=== PATIENT | female | born 1970 | race Caucasian/White ===

== ENCOUNTER → 2023-10-24 15:36 | Outpatient (REF) | payer BC, SELFPAY | LOC: RAD 15:36 | PROVIDERS: ATTENDING PHYSICIAN Internal Medicine Critical Care Medicine; FAMILY PHYSICIAN Family Medicine | DX: R91.1 Solitary pulmonary nodule (principal) | CPT/HCPCS: 71250 ==

== ENCOUNTER 2023-10-27 20:35 | Inpatient (IN) | payer BC, SELFPAY ==
[2023-10-27 16:57] VITALS: BP 128/64
--- NOTE | 2023-10-27 18:27 | ED.GENMED ---
History of Present Illness
General
Chief Complaint: Breathing Problem
Source: patient
Exam Limitations: none
Time Seen by Provider: 10/27/23 17:59
Nursing documentation reviewed up to this point in time: agreed with
History of Present Illness
History of Present Illness:
53-year-old female past medical history of ulcerative colitis asthma breast cancer bilateral mastectomy fistulas in the obstructions presents to the ER for evaluation. She is followed by Dr. Eber Toledo and recently had an outpatient CAT scan
done October 23 which showed pneumonia. She was recommended to be admitted for IV antibiotics. With past medical history she does not do well on oral antibiotics. She does complain of productive yellow cough. She feels achy but has not a fever.
Today she did feel short of breath at work.
she has been using her nebs .
Past History
Past History
ED Past Medical History: Cancer (breast CA), Other (ulcerative colitis) and Other (migraines)
ED Past Surgical History: Bowel resection (colon removal), Gynecological (double breast mastectomy) and Other (sinus surgery x3)
Review of Systems
Review of Systems
Allergies reviewed?: Yes
All Other Systems: ROS reviewed and negative except as documented in HPI and ROS
Constitutional: Denies fever, fatigue or chills
EENT: Reports no symptoms
Respiratory: Reports cough and trouble breathing (mildly sob )
ABD/GI: Reports no symptoms
: Reports no symptoms
Musculoskeletal: Reports other (Feels achy)
Skin: Reports no symptoms
Neurological: Reports no symptoms
Hematologic/Lymphatic: Reports no symptoms
Psychiatric: Reports no symptoms
Phy Exam
General Physical Exam
General Presentation: no apparent distress
General age: appears stated age
General Skin: warm and dry
General Habitus: normal
General Mental: alert
General Hydration: appears well hydrated
Cardiovascular Exam
Cardiovascular Exam: regular rate/rhythm, no murmur and normal peripheral pulses
Pulmonary Exam
Pulmonary Exam: lungs clear and no respiratory distress
Neurological Exam
Neurological Exam: alert and oriented x3
Musculoskeletal Exam
Musculoskeletal Exam: full ROM
Skin Exam
Skin Exam: normal color and warm/dry
Psychiatric Exam
Psychiatric Exam: normal mood/affect
Scores
Heart Failure Risk
Heart Failure Risk Score: Not Applicable
Course
Orders/Labs/Results
Orders:
Orders
10/27/23 18:31
Cardiac Monitoring- Treatment ONCE
IV Insert/Care/Rem.- Treatment PRN
10/27/23 18:37
CefTRIAXone [Rocephin] 1,000 mg IV NOW STA
10/27/23 18:38
Azithromycin 500 mg/250 ml [Zithromax Infusion] 500 mg in 250 ml IV NOW
10/27/23 18:45
Complete Blood Count/With Diff Urgent
Comprehensive Metabolic Panel Urgent
Lactic Acid Q4H
Comment: CANCEL 2nd LACTIC ACID IF 1st LACTIC ACID IS LESS THAN 2
Blood Culture Q30M
STEPHANIE Source: Blood/Venous
Specimen Description:
Blood Culture Q30M
STEPHANIE Source: Blood/Venous
Specimen Description:
10/27/23 22:45
Lactic Acid Q4H
Comment: CANCEL 2nd LACTIC ACID IF 1st LACTIC ACID IS LESS THAN 2
Abnormal Lab Results
10/27/23
18:45
WBC 13.3 H 10^3/uL
(4.8-10.8)
RBC 4.14 L 10^6/uL
(4.20-5.40)
Hct 36.6 L %
(37.0-47.0)
Abs Immat Gran (auto) 0.1 H 10^3/uL
(0-0.05)
Absolute Neuts (auto) 9.2 H 10^3/uL
(1.4-6.5)
Absolute Monos (auto) 1.1 H 10^3/uL
(0.1-0.6)
Immature Gran % 0.7 H %
(0-0.5)
Sodium 133 L mmol/L
(135-145)
Carbon Dioxide 21 L mmol/L
(22-30)
Glucose 105 H mg/dl
(70-99)
10/27/23 18:45
10/27/23 18:45
Vital Signs
Initial and Last Documented VS:
Initial Vital Signs
Temp Pulse Resp BP Pulse Ox
98.1 F 84 18 128/64 95
10/27/23 16:57 10/27/23 16:57 10/27/23 16:57 10/27/23 16:57 10/27/23 16:57
Last Documented Vital Signs
Temp Pulse Resp BP Pulse Ox
98.1 F 75 19 113/57 93
10/27/23 16:57 10/27/23 18:45 10/27/23 18:45 10/27/23 18:44 10/27/23 18:45
MDM/Problems Addressed
MDM/Problems Addressed:
Patient is a 53-year-old female with asthma and other medical history as documented send the pulmonary. Patient is had a productive yellow cough feels achy for the past several weeks mildly short of breath. She does use medication for asthma which
she has been using. She did outpatient CAT scan October 23 which was ordered as a follow-up CAT scan for questionable abnormality on abdominal CAT scan. 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
to be admitted to the hospital for IV antibiotics. She is sensitive to oral antibiotics as well as IV antibiotics with history of UC/questional Crohn's. She is in no acute distress here white count minimally elevated afebrile IV antibiotics
ordered.
I did review CAT scan which is resulted from October 23.
Chronic conditions affecting care:
Crohn's/ulcerative colitis, asthma
*Radiology
Radiology exam reviewed: radiology read reviewed (Peribronchial thickening airspace opacities recent CAT scan reviewed from October 23 shows findings suggestive of infectious inflammatory process potentially acute on chronic)
*Pulse Oximetry
Patient hypoxic: no
*Critical Care Note
Total Time (30-74mins, 75-104mins- exclusive of procedures): Not Applicable
ED Attending Note
-
Portions of this chart may have been created with voice recognition software.� Occasional wrong word or��sound alike� substitutions may have occurred due to the inherent limitations of voice recognition software.
Discharge Plan
Departure
Patient Disposition: Admit
Date of Disposition: 10/27/23
Time of Disposition: 19:37
Admit to: Med/Surg
Admit to doctor: hospitalist
Presentation/result/management discussed w/ accepting MD/DO: Hospitalist
Patient with high blood pressure during this ER visit?: No
Condition: Fair
Covid-19: Not Applicable
Discharge Problem:
Pneumonia
Prescriptions:
No Action
albuterol sulfate 2.5 mg /3 mL (0.083 %) Solution For Nebulization
2.5 mg INHALATION R BID
divalproex 250 mg tablet,delayed release (DR/EC)
500 mg PO DAILY
divalproex 250 mg tablet,delayed release (DR/EC)
1,250 mg PO HS
ketotifen fumarate [Eye Itch Relief] 0.025 % (0.035 %) Drops
2 drp BOTH EYES DAILYPRN PRN (Reason: itchy eyes)
diphenoxylate-atropine [Lomotil] 2.5-0.025 mg Tablet
2 tab PO DAILY PRN (Reason: diarrhea)
fluoxetine 10 mg Capsule
10 mg PO HS
montelukast 10 mg Tablet
10 mg PO HS
ondansetron 4 mg Tablet,Disintegrating
4 mg PO Q6H PRN (Reason: nausea/vomiting)
levocetirizine [Xyzal] 5 mg Tablet
5 mg PO HS
omeprazole 20 mg Tablet,Delayed Release (Dr/Ec)
20 mg PO HS
cholecalciferol (vitamin D3) 125 mcg (5,000 unit) Tablet
125 mcg PO HS
Botox 200 unit Recon Soln
0 unit IM [id number]
Patient Comments:
10/27/2023, pt. unsure of dose.
ketorolac [Sprix] 15.75 mg/spray [place],Non-Aerosol
1 spray INTRANASAL DAILYPRN PRN (Reason: migraines)
Ubrelvy 100 mg Tablet
100 mg PO DAILYPRN PRN (Reason: migraines)
Nurtec ODT 75 mg Tablet,Disintegrating
75 mg PO DAILYPRN PRN (Reason: migraines)
Benadryl capsule
1 cap PO HSPRN PRN (Reason: allergies)
Fiber (psyllium husk) capsule
1 cap PO DAILYPRN PRN (Reason: constipation)
iron
1 tab PO DAILY
budesonide-formoterol [Symbicort] 160-4.5 mcg/actuation Hfa Aerosol Inhaler
2 puff INHALATION R BID
Referrals:
Venecia Long MD [Family Provider] -
Interventions
Interventions:
ED- Fall Risk Assessment Last Done: 10/27/23 18:50
ED- Cardiac Assessment Last Done: 10/27/23 18:50
ED- Pulmonary Assessment Last Done: 10/27/23 18:50
Discharge Date and Time
Print Language: ARABIC
[2023-10-27 18:44] VITALS: BP 113/57
[2023-10-27 18:50] VITALS: BMI 18.7
[2023-10-27] MEDS: ROCEPHIN 1000 MG IV (18:59)
[2023-10-27] MEDS: ZITHROMAX INFUSION 250 IV (19:03)
[2023-10-27 19:04] LABS: % Basophils 0.7 % (0-2); % Eosinophils 0.7 % (0-6); % Immature Granulocytes 0.7 % (0-0.5); % Lymphocytes 20.9 % (20.5-51.1); % Monocytes 8.3 % (1.7-9.3); % Neutrophils 68.7 % (42.2-75.2); Absolute Basophils 0.1 10^3/uL (0-0.2); Absolute Eosinophils 0.1 10^3/uL (0-0.7); Absolute Immature Granulocytes 0.1 10^3/uL (0-0.05); Absolute Lymphocytes 2.8 10^3/uL (1.2-3.4); Absolute Monocytes 1.1 10^3/uL (0.1-0.6); Absolute Neutrophils 9.2 10^3/uL (1.4-6.5); Hematocrit 36.6 % (37.0-47.0); Hemoglobin 12.1 g/dL (12.0-16.0); Mean Corp Hgb Conc. 33.1 g/dL (33.0-37.0); Mean Corpuscular Hgb 29.2 pg (27.0-31.0); Mean Corpuscular Volume 88.4 fL (81.0-99.0); Nucleated Red Blood Cells % 0 %; Platelet Count 349 10^3/uL (130-400); Red Blood Cell Count 4.14 10^6/uL (4.20-5.40); White Blood Cell Count 13.3 10^3/uL (4.8-10.8)
[2023-10-27 19:18] LABS: Lactic Acid 1.6 mmol/L (0.7-2.0)
[2023-10-27 19:20] LABS: ALT (SGPT) < 10 U/L (0-35); AST (SGOT) 15 U/L (14-36); Albumin 3.9 g/dl (3.5-5.0); Alkaline Phosphatase 67 U/L (38-126); Blood Urea Nitrogen 15 mg/dl (7-17); Calcium 9.4 mg/dl (8.4-10.2); Carbon Dioxide 21 mmol/L (22-30); Chloride 101 mmol/L (98-107); Estimated Creatinine Clearance 65 ml/min; Glucose 105 mg/dl (70-99); Potassium 4.3 mmol/L (3.5-5.1); Sodium 133 mmol/L (135-145); Total Bilirubin 0.5 mg/dl (0.2-1.3); Total Protein 6.9 g/dl (6.3-8.2); eGFR > 60.00
--- NOTE | 2023-10-27 20:00 | HPS.HSE ---
Family Physician
-
Family Physician: Venecia Long
Chief Complaint
-
shortness of breath, cough
History of Present Illness
53-year-old female past medical history of chronic sinusitis, breast cancer status post bilateral mastectomies, ulcerative colitis status post colectomy 1994 complicated by multiple small bowel obstruction status post bowel resections, anal
abscess/fistula status post I&D in August, asthma, anxiety/bipolar, migraines, GERD, presenting for pneumonia.
Patient developed anal abscess in September 12 for which she saw her colorectal doctor at [facility] who gave her antibiotics and performed I&D. At that time she had CT scan of abdomen pelvis which showed evidence of lower lobe pneumonia she had a
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 Toledo Which also confirmed pneumonia and so she was sent in to the hospital for IV antibiotics. She has been having sinus congestion starting a month ago which later evolved into
productive cough and shortness of breath which has been getting worse. Has chills but denies any fevers. She denies any nausea vomiting or diarrhea or abdominal pain.
Patient was instructed by colorectal doctor to complete treatment for pneumonia before consideration of Remicade and further surgery for the anal abscess/fistula. She has some chronic anal discharge which is at baseline.
She was recently treated for vaginal yeast infection with Flucionazole.
She denies smoking or alcohol use.
Medical History
Past Medical History
Past Medical History: Reports Other (chronic sinusitis, breast cancer status post bilateral mastectomies, ulcerative colitis status post colectomy 1994 complicated by multiple small bowel obstruction status post bowel resections, anal
abscess/fistula status post I&D in August, asthma, anxiety/bipolar, migraines, GERD,)
Past Surgical History: Reports None
Social History
Tobacco: Non-smoker
Alcohol: None
Drug: None
Family History
Family History: Not pertinent
Allergies / Home Medications
Allergies reflects when Allergies were last updated in [facility].
Home Medications with original date entered in [facility]
Allergy/Medication List:
Allergies
Allergy/AdvReac Type Severity Reaction Status Date / Time
Sulfa (Sulfonamide Allergy Hives Verified 06/30/16 18:51
Antibiotics)
vancomycin Allergy Itching Verified 10/27/23 17:04
Home Medications
Benadryl 1 cap PO HSPRN PRN allergies 10/27/23
Fiber (psyllium husk) 1 cap PO DAILYPRN PRN constipation 10/27/23
albuterol sulfate 2.5 mg/3 mL (0.083 %) solution for nebulization 2.5 mg inhalation R BID 10/27/23
budesonide-formoterol HFA 160 mcg-4.5 mcg/actuation aerosol inhaler (Symbicort) 2 puff inhalation R BID 10/27/23
cholecalciferol (vitamin D3) 125 mcg (5,000 unit) tablet 125 mcg PO HS 10/27/23
diphenoxylate-atropine 2.5 mg-0.025 mg tablet (Lomotil) 2 tab PO DAILY PRN diarrhea 10/27/23
divalproex 250 mg tablet,delayed release 1,250 mg PO HS 10/27/23
divalproex 250 mg tablet,delayed release 500 mg PO DAILY 10/27/23
fluoxetine 10 mg capsule 10 mg PO HS 10/27/23
iron 1 tab PO DAILY 10/27/23
ketorolac 15.75 mg/spray nasal spray (Sprix) 1 spray intranasal DAILYPRN PRN migraines 10/27/23
ketotifen fumarate 0.025 % (0.035 %) eye drops (Eye Itch Relief) 2 drp BOTH EYES DAILYPRN PRN itchy eyes 10/27/23
levocetirizine 5 mg tablet (Xyzal) 5 mg PO HS 10/27/23
montelukast 10 mg tablet 10 mg PO HS 10/27/23
omeprazole 20 mg tablet,delayed release 20 mg PO HS 10/27/23
onabotulinumtoxinA 200 unit solution for injection (Botox) 0 unit IM [id number] 10/27/23
ondansetron 4 mg disintegrating tablet 4 mg PO Q6H PRN nausea/vomiting 10/27/23
rimegepant 75 mg disintegrating tablet (Nurtec ODT) 75 mg PO DAILYPRN PRN migraines 10/27/23
ubrogepant 100 mg tablet (Ubrelvy) 100 mg PO DAILYPRN PRN migraines 10/27/23
Review of Systems
-
History Source: Patient
A 12 point ROS was completed and negative except as noted: Yes
Constitutional: Reports No Symptoms
EENT: Reports No Symptoms
Respiratory: Reports See HPI
Cardiac: Reports No Symptoms
Abdomen/GI: Reports See HPI
: Reports No Symptoms
Musculoskeletal: Reports No Symptoms
Skin: Reports No Symptoms
Neurological: Reports No Symptoms
Endocrine: Reports No Symptoms
Hematologic/Lymphatic: Reports No Symptoms
Psych: Reports No Symptoms
Physical Exam
Vital Signs
Vital Signs
Temp Pulse Resp BP Pulse Ox
98.1 F 75 19 113/57 93
10/27/23 16:57 10/27/23 18:45 10/27/23 18:45 10/27/23 18:44 10/27/23 18:45
Physical Exam
General: Well Developed, Well Nourished and No Apparent Distress
HEENT: NormoCephalic, Moist mucous membranes and Atraumatic
Respiratory: Clear
Cardiac: S1/S2 and Regular Rhythm; No Murmur or Rub
GI: Soft, Non Tender, Non Distended and Normal Bowel Sounds; No Organomegaly
Rectal: Deferred by Provider
Musculoskeletal: No Clubbing, No Cyanosis and No Edema
Skin: No Rash
Neuro: Nonfocal/grossly intact
Laboratory Results
-
10/27/23 18:45
10/27/23 18:45
Laboratory Results
Lactic Acid 1.6 mmol/L (0.7-2.0) 10/27/23 18:45
Total Bilirubin 0.5 mg/dl (0.2-1.3) 10/27/23 18:45
AST 15 U/L (14-36) 10/27/23 18:45
ALT < 10 U/L (0-35) 10/27/23 18:45
Alkaline Phosphatase 67 U/L (38-126) 10/27/23 18:45
Data Reviewed
-
Lab Data: Labs Reviewed by me
Old Records: Reviewed
Impression/Plan
-
IMPRESSION:
PLAN:
# Community-acquired pneumonia
-CT chest shows peribronchial thickening, airspace opacities, tree-in-bud nodules within the inferior left lower lobe and medial right middle lobe
-Check sputum culture
-Blood cultures
-Ceftriaxone/Zithromycin
History of ulcerative colitis versus Crohn's status post colon resection complicated by multiple small bowel obstructions status post small bowel resections
Recent anal abscess/fistula secondary to ulcerative colitis
-Currently being evaluated by colorectal at [place] for potentially starting Remicade/further surgery after she completes treatment for pneumonia
Recent vaginal yeast infection
-Took fluconazole
Breast cancer status post bilateral mastectomies
Asthma
-Continue inhalers
-Continue montelukast
Anxiety/bipolar
-Continue Depakote, fluoxetine
Migraine history
-On Ubrelvy
GERD
-Continue omeprazole
Chronic sinusitis status post sinus surgeries
-Continue Xyzal
Full code
DVT prophylaxis�heparin
Regular diet
[2023-10-27 21:05] VITALS: BP 116/71; BMI 25.0
[2023-10-27] MEDS: VENTOLIN NEBULES 2.5 MG INH (21:26)
[2023-10-27] MEDS: SYMBICORT 160/4.5 MCG INHALER 2 PUFF INH (21:26)
[2023-10-27] MEDS: DEPAKOTE (12 HR RELEASE) 1250 MG PO (21:38)
[2023-10-27] MEDS: VITAMIN D3 (cholecalciferol) 125 MCG PO (21:38)
[2023-10-27] MEDS: PROTONIX 40 MG PO (21:38)
[2023-10-27] MEDS: SINGULAIR 10 MG PO (21:39)
[2023-10-27] MEDS: PROZAC 10 MG PO (21:39)
[2023-10-27] MEDS: HEPARIN 5000 UNITS SC (21:39)
[2023-10-27] MEDS: ZYRTEC 10 MG PO (21:39)
[2023-10-27 23:07] VITALS: BP 119/58
[2023-10-28 05:24] LABS: % Basophils 0.8 % (0-2); % Eosinophils 0.9 % (0-6); % Immature Granulocytes 0.7 % (0-0.5); % Lymphocytes 30.1 % (20.5-51.1); % Neutrophils 56.5 % (42.2-75.2); Absolute Basophils 0.1 10^3/uL (0-0.2); Absolute Eosinophils 0.1 10^3/uL (0-0.7); Absolute Immature Granulocytes 0.1 10^3/uL (0-0.05); Absolute Lymphocytes 2.7 10^3/uL (1.2-3.4); Absolute Neutrophils 5.1 10^3/uL (1.4-6.5); Hematocrit 34.8 % (37.0-47.0); Hemoglobin 11.9 g/dL (12.0-16.0); Mean Corp Hgb Conc. 34.2 g/dL (33.0-37.0); Mean Corpuscular Hgb 29.5 pg (27.0-31.0); Mean Corpuscular Volume 86.4 fL (81.0-99.0); Mean Platelet Volume 9.9 fL (7.4-10.4); Nucleated Red Blood Cells % 0 %; Platelet Count 336 10^3/uL (130-400); Red Blood Cell Count 4.03 10^6/uL (4.20-5.40)
[2023-10-28 05:49] LABS: ALT (SGPT) < 10 U/L (0-35); AST (SGOT) 15 U/L (14-36); Albumin 3.7 g/dl (3.5-5.0); Alkaline Phosphatase 60 U/L (38-126); Blood Urea Nitrogen 12 mg/dl (7-17); Calcium 9.5 mg/dl (8.4-10.2); Carbon Dioxide 24 mmol/L (22-30); Chloride 103 mmol/L (98-107); Estimated Creatinine Clearance 75 ml/min; Glucose 90 mg/dl (70-99); Potassium 4.7 mmol/L (3.5-5.1); Sodium 136 mmol/L (135-145); Total Bilirubin 0.6 mg/dl (0.2-1.3); Total Protein 6.8 g/dl (6.3-8.2); eGFR > 60.00
[2023-10-28 07:20] VITALS: BP 112/64
[2023-10-28] MEDS: VENTOLIN NEBULES 2.5 MG INH ×2 (07:26→18:28)
[2023-10-28] MEDS: SYMBICORT 160/4.5 MCG INHALER 2 PUFF INH ×2 (07:26→18:27)
[2023-10-28] MEDS: DEPAKOTE (12 HR RELEASE) 500 MG PO (08:08)
[2023-10-28] MEDS: HEPARIN 5000 UNITS SC ×2 (08:08→20:01)
--- NOTE | 2023-10-28 10:25 | W.PN.HOSP.TC ---
Today's Communication/Plan
-
Pulmonary consult
continue Rocephin for now
Nurtec for migraines
Assessment / Plan
Assessment / Plan
# Community-acquired pneumonia
CT scan ordered by Dr. Toledo and when resulted, was sent to hospital by him
-10/23 CT chest: Peribronchial thickening, airspace opacities, and some tree-in-bud nodules primarily within the inferior left lower lobe and medial right middle lobe. Findings appear increased compared to the outside CT abdomen/pelvis from
09/17/2023. Of note, peribronchial thickening was present at these locations on the chest CT from 10/07/2019 but the accompanying parenchymal opacities were less confluent at that time. Findings suggestive of an infectious/inflammatory process,
potentially acute on chronic and clinical correlation is recommended
-Check sputum culture - pending
-Blood cultures - pending
-Ceftriaxone/Zithromycin
Pulmonary consult
History of ulcerative colitis versus Crohn's status post colon resection complicated by multiple small bowel obstructions status post small bowel resections
Recent anal abscess/fistula secondary to ulcerative colitis
-Currently being evaluated by colorectal at [place] for potentially starting Remicade/further surgery after she completes treatment for pneumonia
Recent vaginal yeast infection
-Took fluconazole
Breast cancer status post bilateral mastectomies
Asthma
lungs are clear, without wheeze
-Continue inhalers
-Continue montelukast
Anxiety/bipolar
-Continue Depakote, fluoxetine
Migraine history, active issue
-On Ubrelvy
GERD
-Continue omeprazole
Chronic sinusitis status post sinus surgeries
-Continue Xyzal
Full code
DVT prophylaxis�heparin
Regular diet
Anticipated Discharge: 24 - 48 hours
Subjective/Interval History
-
Date of Service: October 28, 2023
Still with cough, concerned her migraine may be recurring
Objective Data
-
Labs:
Laboratory Results
10/28/23
04:56
WBC 9.0
Hgb 11.9 L
Hct 34.8 L
Plt Count 336
Sodium 136
Potassium 4.7
Chloride 103
Carbon Dioxide 24
BUN 12
Creatinine 0.8
Glucose 90
Calcium 9.5
Total Bilirubin 0.6
AST 15
ALT < 10
Alkaline Phosphatase 60
Vital Signs:
Vital Signs
Temp Pulse Resp BP Pulse Ox
97.4 F 91 16 112/64 97
10/28/23 07:20 10/28/23 07:30 10/28/23 07:30 10/28/23 07:20 10/28/23 07:30
I&O
10/27/23 10/28/23 10/29/23
06:59 06:59 06:59
Intake Total 480 / 480
Balance 480 / 480
Review of Systems
-
History Source: Patient and Coordinated Provider
Constitutional: Denies Fever
EENT: Reports No Symptoms Reported
Respiratory: Reports Cough
Cardiac: Reports No Symptoms; Denies Chest Pain
Abdomen/GI: Reports No Symptoms
Physical Exam
-
General: Well Developed, Well Nourished and No Apparent Distress
HEENT: Normocephalic, Atraumatic and Moist Mucous Membranes
Respiratory: Clear to Auscultation; Negative Wheezes, Rales or Rhonchi
Cardiac: Regular Rhythm and S1/S2
GI: Soft, Nontender and Nondistended
Musculoskeletal: No Clubbing, No Cyanosis and No Edema
Neuro: Awake, Alert and Oriented
Psych: Intact Judgement/Insight
[2023-10-28] MEDS: NON-FORMULARY ITEM 75 MG PO (12:31)
--- NOTE | 2023-10-28 13:36 | CON.PUL ---
Consultation
Consultation Request
Date/Time Consultation Requested: 10/28/23
Date/Time Consultation Performed: 10/28/23
Performing Provider: Efren
Reason for Consultation: PNA
Medical History
-
History of Present Illness:
Patient is a 53-year-old female with previous history of bronchiectasis, asthma, chronic cough and shortness of breath presenting to the hospital for acute on chronic symptoms. She recently had CT chest demonstrating pneumonia, sent to hospital by
Dr. Toledo for IV antibiotics.
WBC on admission 13.3, no fevers noted.
Chest CT obtained demonstrating bronchiolitis. She has chronic history of bronchiectasis and recurrent pneumonias.
Past Medical History
Past Medical History: Other (see list below)
Social History
Tobacco: Non-smoker
Alcohol: None
Drug: None
Family History
Family History: Reviewed & Not Pertinent
Allergies / Home Medications
Allergies
Allergy/AdvReac Type Severity Reaction Status Date / Time
Sulfa (Sulfonamide Allergy Hives Verified 06/30/16 18:51
Antibiotics)
vancomycin Allergy Itching Verified 10/27/23 17:04
Home Medications
�Medication �Instructions �Recorded �Confirmed �Last Taken �Type
Benadryl 1 cap PO HSPRN PRN allergies 10/27/23 10/27/23 1 Week Ago History
~10/20/23
Fiber (psyllium husk) 1 cap PO DAILYPRN PRN constipation 10/27/23 10/27/23 1 Week Ago History
~10/20/23
albuterol sulfate 2.5 mg/3 mL 2.5 mg inhalation R BID 10/27/23 10/27/23 10/27/23 History
(0.083 %) solution for nebulization
budesonide-formoterol HFA 160 2 puff inhalation R BID 10/27/23 10/27/23 10/27/23 History
mcg-4.5 mcg/actuation aerosol
inhaler (Symbicort)
cholecalciferol (vitamin D3) 125 125 mcg PO HS 10/27/23 10/27/23 10/26/23 History
mcg (5,000 unit) tablet
diphenoxylate-atropine 2.5 2 tab PO DAILY PRN diarrhea 10/27/23 10/27/23 1 Week Ago History
mg-0.025 mg tablet (Lomotil) ~10/20/23
divalproex 250 mg tablet,delayed 1,250 mg PO HS 10/27/23 10/27/23 10/26/23 History
release
divalproex 250 mg tablet,delayed 500 mg PO DAILY 10/27/23 10/27/23 10/27/23 History
release
fluoxetine 10 mg capsule 10 mg PO HS 10/27/23 10/27/23 10/26/23 History
iron 1 tab PO DAILY 10/27/23 10/27/23 10/27/23 History
ketorolac 15.75 mg/spray nasal 1 spray intranasal DAILYPRN PRN 10/27/23 10/27/23 10/26/23 History
spray (Sprix) migraines
ketotifen fumarate 0.025 % (0.035 2 drp BOTH EYES DAILYPRN PRN itchy 10/27/23 10/27/23 1 Week Ago History
%) eye drops (Eye Itch Relief) eyes ~10/20/23
levocetirizine 5 mg tablet (Xyzal) 5 mg PO HS 10/27/23 10/27/23 10/26/23 History
montelukast 10 mg tablet 10 mg PO HS 10/27/23 10/27/23 10/26/23 History
omeprazole 20 mg tablet,delayed 20 mg PO HS 10/27/23 10/27/23 10/26/23 History
release
onabotulinumtoxinA 200 unit 0 unit IM [id number] 10/27/23 10/27/23 10/20/23 History
solution for injection (Botox)
ondansetron 4 mg disintegrating 4 mg PO Q6H PRN nausea/vomiting 10/27/23 10/27/23 1 Week Ago History
tablet ~10/20/23
rimegepant 75 mg disintegrating 75 mg PO DAILYPRN PRN migraines 10/27/23 10/27/23 10/27/23 History
tablet (Nurtec ODT)
ubrogepant 100 mg tablet (Ubrelvy) 100 mg PO DAILYPRN PRN migraines 10/27/23 10/27/23 1 Week Ago History
~10/20/23
Review of Systems
-
History Source: Patient
All other systems: Negative unless noted
Vitals / Labs / Diagnostic Testing
Vital Signs
Temp Pulse Resp BP Pulse Ox
97.4 F 91 16 112/64 95
10/28/23 07:20 10/28/23 07:30 10/28/23 07:30 10/28/23 07:20 10/28/23 08:00
Lab Data
10/28/23 04:56
10/28/23 04:56
Diagnostic Testing:
Physical Exam
-
HEENT: Normocephalic, Anicteric and Moist Mucous Membranes
Cardiovascular: S1/S2 and Regular Rhythm
Respiratory: Rales, Non-Labored Respirations and Other (small rub on L)
GI: Soft, Non Distended and Non Tender
Neurology: Awake, Alert, Oriented, AO x 3 and No Motor Deficits
Skin: Warm, Dry and Good Color
General: Comfortable and Other (NAD)
Assessment
-
Patient is a 53-year-old female with previous history of bronchiectasis, asthma, chronic cough and shortness of breath presenting to the hospital for acute on chronic symptoms. She recently had CT chest demonstrating pneumonia, sent to hospital by
Dr. Toledo for IV antibiotics. WBC on admission 13.3, no fevers noted. Chest CT obtained demonstrating bronchiolitis. She has chronic history of bronchiectasis and recurrent pneumonias.
CAP
Acute on chronic SOB/cough
Mild leukocytosis
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
Hypersomnia-related depression, PSG/MSLT showing 5/5 naps, no SOREMPs
Depression
breast CA treated with bilateral mastectomy, no chemo/XRT
migraine
bipolar
asthma
chronic sinusitis
allergies--dust, mold
ulcerative colitis treated with colectomy, complicated by anal fistula and IBS
herniated disc cervical region treated with epidural
chronic cough
Anal fistula
Plan
No oxygen was needed on admission, currently saturating >90% on RA
Prior history of lung disease is noted; reviewed outpatient notes--Follows Dr Toledo
Bronchiectasis - Prior CT chest reviewed: Bilateral patchy bronchiectasis noted; on Symbicort, Singulair.
History of chronic shortness of breath going up steps and a cough that is productive of 1 tablespoon of yellow sputum.
Chronic rhinitis s/p sinus surgery x 3 last being 2012, follows ENT (Graciela). continue with budesonide nasal rinse, recommended compliance. History of sinus polyps per patient.
Mild intermittent asthma without complication--PFT today shows mild restrictive pattern. FENO was slightly elevated at 31
Suspect patient has bronchitis vs PNA
Sputum culture sent, pending
Continue airway clearance, she notes no difficulty coughing/producing sputum
Resume home inhalers
CXR/CT obtained indicating peribronchial thickening, TIB, suggestive of atypical infection
Other imaging reviewed
She is placed on CTX/azithro
If not improving, may need to consider bronschoscopic eval
Can repeat imaging as needed
Encouraged OOB/Ambulation
Will need outpatient pulmonary evaluation in our office for PFTs and 6MWT
Reviewed with patient
Follows with Dr Toledo
We will follow
Diagnostic Data
Chest X-Ray: 06/24/22- No acute disease of the chest.
CT Scan: CHEST 10/24/23-- Peribronchial thickening, airspace opacities, and some tree-in-bud nodules primarily within the inferior left lower lobe and medial right middle lobe. Findings appear increased compared to the outside CT abdomen/pelvis from
09/17/2023. Of note, peribronchial thickening was present at these locations on the chest CT from 10/07/2019 but the accompanying parenchymal opacities were less confluent at that time. Findings suggestive of an infectious/inflammatory process,
potentially acute on chronic and clinical correlation is recommended.
10/07/19 Bronchial wall thickening, bronchiectasis and small airway disease involving the right middle lobe, the posterior and medial segments of the right lower lobe, and the left lower lobe. There is also curvilinear atelectasis in the posterior and
inferior aspect of the left lower lobe. Slightly more confluent parenchymal opacity in the inferior aspect of the right middle lobe, which could represent atelectasis, or a more focal area of infection/inflammation. No significant pleural effusion.
Echo:
PFT's:
Reports and relevant images were personally reviewed.
Total time spent on this consultation __75__ includes review of history, physical exam, medications, laboratory data, personal review of imaging, extensive review of outpatient records, discussion with care team and respiratory therapy.
[2023-10-28 15:10] VITALS: BP 133/63
--- NOTE | 2023-10-28 16:19 | CM ---
Patient seen at bedside with mother present. Patient stated that she lives alone in a one bedroom apartment. Patient PCP is Dr. Maria and she uses the [facility] on [address]. Patient did not anticipate any needs at this time. CM will continue to follow
for discharge planning needs.
Plan; home with no needs anticipated
[2023-10-28] MEDS: ROCEPHIN 1000 MG IV (17:10)
[2023-10-28] MEDS: STERILE WATER FOR INJECTION 10 ML IV (17:10)
[2023-10-28] MEDS: ZITHROMAX INFUSION 250 IV (17:43)
[2023-10-28] MEDS: DEPAKOTE (12 HR RELEASE) 1250 MG PO (21:33)
[2023-10-28] MEDS: SINGULAIR 10 MG PO (21:33)
[2023-10-28] MEDS: ZYRTEC 10 MG PO (21:33)
[2023-10-28] MEDS: VITAMIN D3 (cholecalciferol) 125 MCG PO (21:33)
[2023-10-28] MEDS: PROZAC 10 MG PO (21:33)
[2023-10-28] MEDS: PROTONIX 40 MG PO (21:33)
[2023-10-28 23:55] VITALS: BP 105/60
[2023-10-29 05:12] LABS: % Basophils 0.8 % (0-2); % Eosinophils 1.8 % (0-6); % Lymphocytes 39.6 % (20.5-51.1); % Monocytes 9.5 % (1.7-9.3); % Neutrophils 47.3 % (42.2-75.2); Absolute Basophils 0.1 10^3/uL (0-0.2); Absolute Eosinophils 0.1 10^3/uL (0-0.7); Absolute Immature Granulocytes 0.1 10^3/uL (0-0.05); Absolute Lymphocytes 2.8 10^3/uL (1.2-3.4); Absolute Monocytes 0.7 10^3/uL (0.1-0.6); Absolute Neutrophils 3.4 10^3/uL (1.4-6.5); Hematocrit 37.2 % (37.0-47.0); Hemoglobin 12.4 g/dL (12.0-16.0); Mean Corp Hgb Conc. 33.3 g/dL (33.0-37.0); Mean Corpuscular Hgb 29.2 pg (27.0-31.0); Mean Corpuscular Volume 87.5 fL (81.0-99.0); Mean Platelet Volume 10.1 fL (7.4-10.4); Nucleated Red Blood Cells % 0 %; Platelet Count 344 10^3/uL (130-400); Red Blood Cell Count 4.25 10^6/uL (4.20-5.40); Red Cell Dist. Width 12.6 % (11.5-14.5); White Blood Cell Count 7.1 10^3/uL (4.8-10.8)
[2023-10-29 05:33] LABS: Blood Urea Nitrogen 14 mg/dl (7-17); Calcium 9.6 mg/dl (8.4-10.2); Carbon Dioxide 24 mmol/L (22-30); Chloride 99 mmol/L (98-107); Estimated Creatinine Clearance 75 ml/min; Glucose 86 mg/dl (70-99); Potassium 4.6 mmol/L (3.5-5.1); Sodium 133 mmol/L (135-145); eGFR > 60.00
[2023-10-29 07:15] VITALS: BP 106/48
[2023-10-29] MEDS: SYMBICORT 160/4.5 MCG INHALER 2 PUFF INH ×2 (07:16→19:46)
[2023-10-29] MEDS: VENTOLIN NEBULES 2.5 MG INH ×2 (07:16→19:46)
[2023-10-29] MEDS: HEPARIN 5000 UNITS SC ×2 (08:22→20:15)
[2023-10-29] MEDS: DEPAKOTE (12 HR RELEASE) 500 MG PO (08:22)
--- NOTE | 2023-10-29 09:16 | W.PN.HOSP.TC ---
Today's Communication/Plan
-
continue current abx
potential bronchoscopy as per Pulm
Assessment / Plan
Assessment / Plan
# Community-acquired pneumonia
CT scan ordered by Dr. Toledo and when resulted, patient was sent to hospital by him
-10/23 CT chest: Peribronchial thickening, airspace opacities, and some tree-in-bud nodules primarily within the inferior left lower lobe and medial right middle lobe. Findings appear increased compared to the outside CT abdomen/pelvis from
09/17/2023. Of note, peribronchial thickening was present at these locations on the chest CT from 10/07/2019 but the accompanying parenchymal opacities were less confluent at that time. Findings suggestive of an infectious/inflammatory process,
potentially acute on chronic and clinical correlation is recommended
-Check sputum culture - pending
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
-Blood cultures - NGTD
-Ceftriaxone/Zithromycin
Pulmonary consult appreciated
History of ulcerative colitis versus Crohn's status post colon resection complicated by multiple small bowel obstructions status post small bowel resections
Recent anal abscess/fistula secondary to ulcerative colitis
-Currently being evaluated by colorectal at [facility] for potentially starting Remicade/further surgery after she completes treatment for pneumonia
Recent vaginal yeast infection
-Took fluconazole
Breast cancer status post bilateral mastectomies
Asthma
will defer to Pulm whether this is a component of her current resp issues
-Continue inhalers
-Continue montelukast
Anxiety/bipolar
-Continue Depakote, fluoxetine
Migraine history, active issue
-On Ubrelvy
GERD
-Continue omeprazole
Chronic sinusitis status post sinus surgeries
-Continue Xyzal
Full code
DVT prophylaxis�heparin
Regular diet
Anticipated Discharge: > 48 hours
Subjective/Interval History
-
Date of Service: October 29, 2023
Still with coughing
Objective Data
-
Labs:
Laboratory Results
10/29/23
04:47
WBC 7.1
Hgb 12.4
Hct 37.2
Plt Count 344
Sodium 133 L
Potassium 4.6
Chloride 99
Carbon Dioxide 24
BUN 14
Creatinine 0.8
Glucose 86
Calcium 9.6
Vital Signs:
Vital Signs
Temp Pulse Resp BP Pulse Ox
97.6 F 84 16 106/48 98
10/29/23 07:15 10/29/23 07:21 10/29/23 07:21 10/29/23 07:15 10/29/23 07:21
I&O
10/28/23 10/29/23 10/30/23
06:59 06:59 06:59
Intake Total 480 / 480 1440 / 1440
Balance 480 / 480 1440 / 1440
Review of Systems
-
History Source: Patient and Coordinated Provider
Constitutional: Denies Fever
EENT: Reports No Symptoms Reported
Respiratory: Reports Cough
Cardiac: Reports No Symptoms; Denies Chest Pain
Abdomen/GI: Reports No Symptoms
Physical Exam
-
General: Well Developed, Well Nourished and No Apparent Distress
HEENT: Normocephalic, Atraumatic and Moist Mucous Membranes
Respiratory: Wheezes (minimal end inspiratory wheeze) and Rales (end inspiratory fine rales noted); Negative Clear to Auscultation (able to take much deeper breaths and wheeze/rales noted) or Rhonchi
Cardiac: Regular Rhythm and S1/S2
GI: Soft, Nontender and Nondistended
Musculoskeletal: No Clubbing, No Cyanosis and No Edema
Neuro: Awake, Alert and Oriented
Psych: Intact Judgement/Insight
--- NOTE | 2023-10-29 10:03 | CM ---
Patient seen walking in hallways. Per physician patient for further testing. CM will continue to follow for discharge planning needs.
Plan; home with no needs pending functional status.
--- NOTE | 2023-10-29 11:47 | W.PN.PUL3 ---
Today's Communication / Plan
-
Slightly better, more cough/sputum production
Sputum culture final negative
Encouraged continues airway clearance
Continue IV abx--may consider de-escalation
Encouraged ambulation, OOB
Assessment
-
Patient is a 53-year-old female with previous history of bronchiectasis, asthma, chronic cough and shortness of breath presenting to the hospital for acute on chronic symptoms. She recently had CT chest demonstrating pneumonia, sent to hospital by
Dr. Toledo for IV antibiotics. WBC on admission 13.3, no fevers noted. Chest CT obtained demonstrating bronchiolitis. She has chronic history of bronchiectasis and recurrent pneumonias.
CAP
Acute on chronic SOB/cough
Mild leukocytosis
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
Hypersomnia-related depression, PSG/MSLT showing 5/5 naps, no SOREMPs
Depression
breast CA treated with bilateral mastectomy, no chemo/XRT
migraine
bipolar
asthma
chronic sinusitis
allergies--dust, mold
ulcerative colitis treated with colectomy, complicated by anal fistula and IBS
herniated disc cervical region treated with epidural
chronic cough
Anal fistula
Plan
No oxygen was needed on admission, currently saturating >90% on RA
Prior history of lung disease is noted; reviewed outpatient notes--Follows Dr Toledo
Bronchiectasis - Prior CT chest reviewed: Bilateral patchy bronchiectasis noted; on Symbicort, Singulair.
History of chronic shortness of breath going up steps and a cough that is productive of 1 tablespoon of yellow sputum.
Chronic rhinitis s/p sinus surgery x 3 last being 2012, follows ENT (Graciela). continue with budesonide nasal rinse, recommended compliance. History of sinus polyps per patient.
Mild intermittent asthma without complication--PFT today shows mild restrictive pattern. FENO was slightly elevated at 31
Suspect patient has bronchitis vs PNA
Sputum culture sent--usual keturah
Continue airway clearance, she notes no difficulty coughing/producing sputum
More productive today
Resume home inhalers
CXR/CT obtained indicating peribronchial thickening, TIB, suggestive of atypical infection
Other imaging reviewed
She is placed on CTX/azithro
If not improving, may need to consider bronschoscopic eval
She seems to be doing better but can determine in next 24 hours
Can repeat imaging as needed
Encouraged OOB/Ambulation
Will need outpatient pulmonary evaluation in our office for PFTs and 6MWT
Reviewed with patient
Follows with Dr Toledo
Diagnostic Data
Chest X-Ray: 06/24/22- No acute disease of the chest.
CT Scan: CHEST 10/24/23-- Peribronchial thickening, airspace opacities, and some tree-in-bud nodules primarily within the inferior left lower lobe and medial right middle lobe. Findings appear increased compared to the outside CT abdomen/pelvis from
09/17/2023. Of note, peribronchial thickening was present at these locations on the chest CT from 10/07/2019 but the accompanying parenchymal opacities were less confluent at that time. Findings suggestive of an infectious/inflammatory process,
potentially acute on chronic and clinical correlation is recommended.
10/07/19 Bronchial wall thickening, bronchiectasis and small airway disease involving the right middle lobe, the posterior and medial segments of the right lower lobe, and the left lower lobe. There is also curvilinear atelectasis in the posterior and
inferior aspect of the left lower lobe. Slightly more confluent parenchymal opacity in the inferior aspect of the right middle lobe, which could represent atelectasis, or a more focal area of infection/inflammation. No significant pleural effusion.
Echo:
PFT's:
Reports and relevant images were personally reviewed.
Total time spent on this consultation __50__ includes review of history, physical exam, medications, laboratory data, personal review of imaging, extensive review of outpatient records, discussion with care team and respiratory therapy.
Subjective Data
-
Date of Service:
Date of Service: October 29, 2023
Chief Complaint: Pulmonary Follow Up
Subjective:
doing slightly better today
able to walk around her room
still coughing but more productive today
Objective Data
Data Reviewed
Vital Signs / I&O / Oxygen:
Vital Signs
Temp Pulse Resp BP Pulse Ox
97.6 F 84 16 106/48 98
10/29/23 07:15 10/29/23 07:21 10/29/23 07:21 10/29/23 07:15 10/29/23 07:21
Intake and Output
10/28/23 10/29/23 10/30/23
06:59 06:59 06:59
Intake Total 480 / 480 1440 / 1440
Balance 480 / 480 1440 / 1440
SaO2 98
Physical Exam
General: Comfortable and Other (NAD)
HEENT: Normocephalic, Anicteric and Moist Mucous Membranes
Cardiovascular: S1-S2 and Regular Rhythm
Respiratory: Rhonchi (L>R) and Non-Labored Respirations
GI: Soft, Non Distended and Non Tender
Neurology: Awake, Alert, Oriented, AO x 3 and No Motor Deficits
Skin: Warm, Dry and Good Color
Labs/Micro/Reports
Lab Data
10/29/23 04:47
10/29/23 04:47
Microbiology
10/28/23 09:41 Sputum Respiratory Culture - Preliminary
Usual Respiratory Keturah
10/28/23 09:41 Sputum Gram Stain - Final
10/27/23 18:45 Blood/Venous Blood Culture - Preliminary
No Growth in 24 hours- Final report to follow
10/27/23 18:45 Blood/Venous Blood Culture - Preliminary
No Growth in 24 hours- Final report to follow
[2023-10-29 15:15] VITALS: BP 112/59
[2023-10-29] MEDS: STERILE WATER FOR INJECTION 10 ML IV (17:32)
[2023-10-29] MEDS: ROCEPHIN 1000 MG IV (17:32)
[2023-10-29] MEDS: ZITHROMAX INFUSION 250 IV (17:37)
[2023-10-29] MEDS: BENADRYL 25 MG PO (20:15)
[2023-10-29] MEDS: DEPAKOTE (12 HR RELEASE) 1250 MG PO (21:56)
[2023-10-29] MEDS: SINGULAIR 10 MG PO (21:57)
[2023-10-29] MEDS: VITAMIN D3 (cholecalciferol) 125 MCG PO (21:57)
[2023-10-29] MEDS: ZYRTEC 10 MG PO (21:57)
[2023-10-29] MEDS: PROTONIX 40 MG PO (21:57)
[2023-10-29] MEDS: PROZAC 10 MG PO (21:57)
[2023-10-29 23:32] VITALS: BP 119/66
[2023-10-30 07:25] VITALS: BP 113/63
[2023-10-30] MEDS: SYMBICORT 160/4.5 MCG INHALER 2 PUFF INH ×2 (07:51→19:51)
[2023-10-30] MEDS: VENTOLIN NEBULES 2.5 MG INH ×2 (07:51→19:51)
[2023-10-30] MEDS: DEPAKOTE (12 HR RELEASE) 500 MG PO (08:18)
[2023-10-30] MEDS: HEPARIN 5000 UNITS SC ×2 (08:19→20:00)
--- NOTE | 2023-10-30 10:20 | W.PN.PUL3 ---
Today's Communication / Plan
-
stable with her degree of cough/sputum production
Sputum culture -usual respiratory keturah
Encouraged continues airway clearance
Continue IV abx--may consider de-escalation as she continues to clinically stabilize/improve
Encouraged ambulation, OOB
Assessment
-
Patient is a 53-year-old female with previous history of bronchiectasis, asthma, chronic cough and shortness of breath presenting to the hospital for acute on chronic symptoms. She recently had CT chest demonstrating pneumonia, sent to hospital by
Dr. Toledo for IV antibiotics. WBC on admission 13.3, no fevers noted. Chest CT obtained demonstrating bronchiolitis. She has chronic history of bronchiectasis and recurrent pneumonias.
Impression:
CAP
Acute on chronic SOB/cough
Mild leukocytosis
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
Hypersomnia-related depression, PSG/MSLT showing 5/5 naps, no SOREMPs
Depression
breast CA treated with bilateral mastectomy, no chemo/XRT
migraine
bipolar
asthma
chronic sinusitis
allergies--dust, mold
ulcerative colitis treated with colectomy, complicated by anal fistula and IBS
herniated disc cervical region treated with epidural
chronic cough
Anal fistula
Plan
No oxygen was needed on admission, currently saturating >90% on RA
Prior history of lung disease is noted; reviewed outpatient notes--Follows Dr Toledo
Bronchiectasis - Prior CT chest reviewed: Bilateral patchy bronchiectasis noted; on Symbicort, Singulair.
History of chronic shortness of breath going up steps and a cough that is productive of 1 tablespoon of yellow sputum.
Chronic rhinitis s/p sinus surgery x 3 last being 2012, follows ENT (Graciela). continue with budesonide nasal rinse, recommended compliance. History of sinus polyps per patient.
Mild intermittent asthma without complication - mild restriction on PFTs from 09/30/2023 without COPD
We still do not know what has caused her bronchiectasis to she says that she previously had her immunoglobulin levels checked about 10 years ago and they were WNL. I will recheck this now for thoroughness sake
Suspect patient has bronchitis vs PNA
Sputum culture sent--usual keturah
Continue airway clearance, she notes no difficulty coughing/producing sputum
Resume home inhalers -on Symbicort 160mcg + nebulized albuterol BID
CXR/CT obtained indicating peribronchial thickening, TIB, suggestive of atypical infection
Other imaging reviewed
She is placed on CTX/azithro
If not improving, may need to consider bronschoscopic eval
She continues to be symptomatic but is definitely not worsening, remains afebrile and on room air breathing comfortably and able to ambulate without respiratory complaints; currently no indication for bronchoscopy
Can repeat imaging as needed
Encouraged OOB/Ambulation
Will need outpatient pulmonary evaluation in our office for PFTs and 6MWT
Reviewed with patient
Follows with Dr Toledo
Total time spent today was 35 minutes for this encounter. Time includes reviewing laboratory test/imaging results, reviewing pertinent medical records, obtaining and reviewing medical history, performing an appropriate exam, ordering medications,
tests and procedures. Time also includes documentation of this encounter, coordinating patient care and communicating with other healthcare professionals. Total time does not include separately billed tests performed on this date of service.
Diagnostic Data
Chest X-Ray: 06/24/22- No acute disease of the chest.
CT Scan: CHEST 10/24/23-- Peribronchial thickening, airspace opacities, and some tree-in-bud nodules primarily within the inferior left lower lobe and medial right middle lobe. Findings appear increased compared to the outside CT abdomen/pelvis from
09/17/2023. Of note, peribronchial thickening was present at these locations on the chest CT from 10/07/2019 but the accompanying parenchymal opacities were less confluent at that time. Findings suggestive of an infectious/inflammatory process,
potentially acute on chronic and clinical correlation is recommended.
10/07/19 Bronchial wall thickening, bronchiectasis and small airway disease involving the right middle lobe, the posterior and medial segments of the right lower lobe, and the left lower lobe. There is also curvilinear atelectasis in the posterior and
inferior aspect of the left lower lobe. Slightly more confluent parenchymal opacity in the inferior aspect of the right middle lobe, which could represent atelectasis, or a more focal area of infection/inflammation. No significant pleural effusion.
Reports and relevant images were personally reviewed.
Subjective Data
-
Date of Service:
Date of Service: October 30, 2023
Chief Complaint: Pulmonary Follow Up
Subjective:
Patient seen and evaluated today at bedside. Sitting in chair in no acute distress. She still feels an 'itchy throat' and cough with green phlegm production. Afebrile overnight. She is able to ambulate around the room without any respiratory
complaints. She denies chest pain, headache, abdominal pain, fevers or chills.
Review of Systems
General: Other (Negative unless mentioned above)
Objective Data
Data Reviewed
Vital Signs / I&O / Oxygen:
Vital Signs
Temp Pulse Resp BP Pulse Ox
97.7 F 68 14 113/63 96
10/30/23 07:25 10/30/23 07:54 10/30/23 07:54 10/30/23 07:25 10/30/23 07:54
Intake and Output
10/29/23 10/30/23 10/31/23
06:59 06:59 06:59
Intake Total 1440 / 1440 1999
Balance 1440 / 1440 1999
SaO2 96
Physical Exam
General: Respiratory Distress (negative), Comfortable and Other (NAD)
HEENT: Normocephalic, Anicteric and Moist Mucous Membranes
Cardiovascular: S1-S2 and Peripheral Edema (negative)
Respiratory: Wheeze (negative), Crackles (Bilateral in the bases to midlung back), Rhonchi (L>R) and Non-Labored Respirations
GI: Soft, Non Distended and Non Tender
Neurology: AO x 3 and Tremors (negative)
Skin: Warm, Dry and Jaundice (negative)
Labs/Micro/Reports
Lab Data
10/29/23 04:47
10/29/23 04:47
Microbiology
10/28/23 17:46 Nose MRSA Screen - Final
No Methicillin Resistant Staphylococcus aureus isolated.
10/28/23 09:41 Sputum Respiratory Culture - Final
Usual Respiratory Keturah
10/28/23 09:41 Sputum Gram Stain - Final
10/27/23 18:45 Blood/Venous Blood Culture - Preliminary
No Growth in 48 hours- Final report to follow
10/27/23 18:45 Blood/Venous Blood Culture - Preliminary
No Growth in 48 hours- Final report to follow
--- NOTE | 2023-10-30 10:34 | W.PN.HOSP.TC ---
Addendum entered and electronically signed by Suraj Johnson MD 10/30/23 12:23:
I personally performed a history and physical exam of the patient and discussed management with the resident. I reviewed the resident's note and agree with the documented findings and plan of care HPI/CC except for change in doumentaion
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 Patient has been having sinus congestion and shortness of breath which has been getting worse. Had chills but no fevers. She also squamous disease and colorectal physician
advised her to completed treatment for pneumonia before consideration of any biologic agents.
CT of the chest-. Bronchial thickening, airspace opacities, tree-in-bud nodules primarily in the inferior left lower lobe and medial right middle lobe.
[facility]: S1-S2 normal
Chest: few short wheezes left
Abdomen: Soft, NT / Bowel sounds present
Extremities: No edema
# Community-acquired pneumonia
Sputum culture-usual respiratory estela
No hypoxia
Blood cultures negative
Continue ceftriaxone , Can stop Zithromax after today. Will be day 5
Pulmonary following
# IBD-ulcerative colitis versus Crohn's disease with history of colon resection
This is complicated by multiple small bowel obstruction status post resection
May need to get started on biologic agents as outpatient at later time
# Recurrent anal abscess/fistula likely secondary to IBD
Currently following with colorectal at [facility]
# Mild hyponatremia-follow
# Recent vaginal infection-completed fluconazole
# History of breast cancer status post bilateral mastectomies. No chemoradiation
# Asthma-on Symbicort, albuterol, Singulair as outpatient
# Anxiety/bipolar disease-continue Depakote, fluoxetine
# Migraines-continue Ubrelvy, rimegepant
# Hepatomegaly and hepatic steatosis on ultrasound
# GERD-continue PPI
# Chronic sinusitis with history of sinus surgeries in the past-continue Xyzal
# DVT prophylaxis-subcutaneous heparin
# Full code
Original Note:
Today's Communication/Plan
-
Monitor symptoms
IV abx
Assessment / Plan
Assessment / Plan
53-year-old female with previous history of bronchiectasis, asthma, chronic cough who presented with Community acquired pneumonia
Community-acquired pneumonia:
-10/23 CT chest: Peribronchial thickening, airspace opacities, and some tree-in-bud nodules primarily within the inferior left lower lobe and medial right middle lobe. Findings appear increased compared to the outside CT abdomen/pelvis from
09/17/2023. Of note, peribronchial thickening was present at these locations on the chest CT from 10/07/2019 but the accompanying parenchymal opacities were less confluent at that time. Findings suggestive of an infectious/inflammatory process,
potentially acute on chronic and clinical correlation is recommended.
-Sputum culture showed usual respiratory estela
-Blood cultures x 2 NGTD
-Continue ceftriaxone to 11/01
-Sufficient course of azithromycin. Discontinue
-Pulmonary consult appreciated
Ulcerative colitis;
-With multiple bowel obstruction, status post colon resection and two small bowel obstructions + resections. History of anal fistula.
-Being evaluated at [facility] + treatment
-No bowel symptoms at this time
Asthma
-Mild scattered wheezing on auscultation
-Continue nebulizer treatment
-Continue Symbicort and montelukast
Anxiety/bipolar
-Continue Depakote, fluoxetine
Migraine history, active issue
-Rimegepant as needed
-Ketorolac nasal spray as needed
Breast cancer status post bilateral mastectomies
GERD
-Continue omeprazole
Chronic sinusitis status post sinus surgeries
-Continue Xyzal
Full code
DVT prophylaxis�heparin
Regular diet
Anticipated Discharge: 24 - 48 hours
Subjective/Interval History
-
Date of Service: October 30, 2023
Dry cough ongoing.
Objective Data
-
Vital Signs:
Vital Signs
Temp Pulse Resp BP Pulse Ox
97.7 F 68 14 113/63 96
10/30/23 07:25 10/30/23 07:54 10/30/23 07:54 10/30/23 07:25 10/30/23 07:54
I&O
10/29/23 10/30/23 10/31/23
06:59 06:59 06:59
Intake Total 1440 / 1440 1999
Balance 1440 / 1440 1999
Review of Systems
-
History Source: Patient
Constitutional: Denies Fever or No Appetite
Respiratory: Reports Cough, Trouble Breathing (with coughing) and Other (hoarseness)
Cardiac: Denies Chest Pain or Palpitations
Abdomen/GI: Reports Other (yellow stool); Denies No Symptoms, Abdominal Pain, Diarrhea, Constipated, Bloody Stools or Black Stools
Genitourinary: Reports No Symptoms; Denies Dysuria, Difficulty Voiding or Bleeding
Neuro: Denies Headache or Lightheadedness
Physical Exam
-
General: Well Developed, Well Nourished, No Apparent Distress, Comfortable and Conversant; Negative Respiratory Distress or Fever
HEENT: Normocephalic, Atraumatic and Anicteric
Respiratory: Wheezes (minor scattered wheezing, improved with coughing) and Non Labored Respirations; Negative Rhonchi, Crackles or Accessory Resp Muscle Use
Cardiac: Regular Rhythm and S1/S2; Negative Murmur, Rub or Calf Tenderness
GI: Soft, Nontender, Nondistended and Normal Bowel Sounds; Negative Organomegaly
Musculoskeletal: No Clubbing, No Cyanosis and No Edema
Skin: Warm and Dry; Negative Rash, Ulcers, Lesions or Jaundice
Neuro: Awake, Alert and Oriented
Psych: Calm
[2023-10-30 15:25] VITALS: BP 122/67
--- NOTE | 2023-10-30 17:27 | CM ---
Patient ambulating in hallways with no assistance. Discharge Plan of Care: Home with no needs.
[2023-10-30] MEDS: ZITHROMAX 500 MG PO (18:15)
[2023-10-30] MEDS: STERILE WATER FOR INJECTION 10 ML IV (18:15)
[2023-10-30] MEDS: ROCEPHIN 1000 MG IV (18:15)
[2023-10-30] MEDS: BENADRYL 25 MG PO (20:10)
[2023-10-30] MEDS: SINGULAIR 10 MG PO (22:47)
[2023-10-30] MEDS: PROZAC 10 MG PO (22:47)
[2023-10-30] MEDS: DEPAKOTE (12 HR RELEASE) 1250 MG PO (22:47)
[2023-10-30] MEDS: PROTONIX 40 MG PO (22:47)
[2023-10-30] MEDS: ZYRTEC 10 MG PO (22:47)
[2023-10-30] MEDS: VITAMIN D3 (cholecalciferol) 125 MCG PO (22:48)
[2023-10-30 23:15] VITALS: BP 112/65
[2023-10-31 06:40] LABS: Hemoglobin 13.2 g/dL (12.0-16.0); Mean Corpuscular Hgb 29.1 pg (27.0-31.0); Mean Corpuscular Volume 88.1 fL (81.0-99.0); Platelet Count 362 10^3/uL (130-400); Red Blood Cell Count 4.54 10^6/uL (4.20-5.40); Red Cell Dist. Width 12.7 % (11.5-14.5); White Blood Cell Count 6.7 10^3/uL (4.8-10.8)
[2023-10-31 07:07] LABS: Blood Urea Nitrogen 16 mg/dl (7-17); Calcium 9.7 mg/dl (8.4-10.2); Carbon Dioxide 25 mmol/L (22-30); Chloride 101 mmol/L (98-107); Estimated Creatinine Clearance 67 ml/min; Glucose 82 mg/dl (70-99); Potassium 4.8 mmol/L (3.5-5.1); Sodium 137 mmol/L (135-145); eGFR > 60.00
[2023-10-31 07:20] VITALS: BP 118/53
[2023-10-31] MEDS: VENTOLIN NEBULES 2.5 MG INH (08:08)
[2023-10-31] MEDS: SYMBICORT 160/4.5 MCG INHALER 2 PUFF INH (08:08)
[2023-10-31] MEDS: DEPAKOTE (12 HR RELEASE) 500 MG PO (08:35)
[2023-10-31] MEDS: HEPARIN SC (08:36)
--- NOTE | 2023-10-31 10:45 | W.PN.PUL3 ---
Today's Communication / Plan
-
stable with her degree of cough/sputum production
Sputum culture -usual respiratory keturah
Encouraged continues airway clearance
Continue Abx and complete 7 days ABx total
Encouraged ambulation, OOB
Patient being prepared for discharge home. Pulmonary service will now sign off. Outpatient follow-up with Dr. Toledo will be arranged. Please reconsult if there are any additional questions/concerns, or if patient's respiratory status
deteriorates.
Assessment
-
Patient is a 53-year-old female with previous history of bronchiectasis, asthma, chronic cough and shortness of breath presenting to the hospital for acute on chronic symptoms. She recently had CT chest demonstrating pneumonia, sent to hospital by
Dr. Toledo for IV antibiotics. WBC on admission 13.3, no fevers noted. Chest CT obtained demonstrating bronchiolitis. She has chronic history of bronchiectasis and recurrent pneumonias.
Impression:
CAP
Acute on chronic SOB/cough
Mild leukocytosis
Conditions present SLUNK SKINNER
Hypersomnia-related depression, PSG/MSLT showing 5/5 naps, no SOREMPs
Depression
breast CA treated with bilateral mastectomy, no chemo/XRT
migraine
bipolar
asthma
chronic sinusitis
allergies--dust, mold
ulcerative colitis treated with colectomy, complicated by anal fistula and IBS
herniated disc cervical region treated with epidural
chronic cough
Anal fistula
Plan
No oxygen was needed on admission, currently saturating >90% on RA
Prior history of lung disease is noted; reviewed outpatient notes--Follows Dr Toledo
Bronchiectasis - Prior CT chest reviewed: Bilateral patchy bronchiectasis noted; on Symbicort, Singulair.
History of chronic shortness of breath going up steps and a cough that is productive of 1 tablespoon of yellow sputum.
Chronic rhinitis s/p sinus surgery x 3 last being 2012, follows ENT (Graciela). continue with budesonide nasal rinse, recommended compliance. History of sinus polyps per patient.
Mild intermittent asthma without complication - mild restriction on PFTs from 09/30/2023 without COPD
We still do not know what has caused her bronchiectasis to she says that she previously had her immunoglobulin levels checked about 10 years ago and they were WNL. I will recheck this now for thoroughness sake - pending
Suspect patient has bronchitis vs PNA
Sputum culture sent--usual keturah
Continue airway clearance, she notes no difficulty coughing up her sputum
Resume home inhalers -on Symbicort 160mcg + nebulized albuterol BID
CXR/CT obtained indicating peribronchial thickening, TIB, suggestive of atypical infection
Other imaging reviewed
She is placed on CTX/azithro
She continues to be symptomatic but is definitely not worsening, remains afebrile and on room air breathing comfortably and able to ambulate without respiratory complaints; currently no indication for bronchoscopy
Can repeat imaging as an outpatient
Encouraged OOB/Ambulation
Will need outpatient pulmonary evaluation in our office for PFTs and 6MWT
Reviewed with patient
Follows with Dr Toledo
Patient being prepared for discharge home. Pulmonary service will now sign off. Thank you for allowing us to be involved in the care of this patient. Please reconsult if there are any additional questions/concerns, or if patient's respiratory
status deteriorates.
Total time spent today was 35 minutes for this encounter. Time includes reviewing laboratory test/imaging results, reviewing pertinent medical records, obtaining and reviewing medical history, performing an appropriate exam, ordering medications,
tests and procedures. Time also includes documentation of this encounter, coordinating patient care and communicating with other healthcare professionals. Total time does not include separately billed tests performed on this date of service.
Diagnostic Data
Chest X-Ray: 06/24/22- No acute disease of the chest.
CT Scan: CHEST 10/24/23-- Peribronchial thickening, airspace opacities, and some tree-in-bud nodules primarily within the inferior left lower lobe and medial right middle lobe. Findings appear increased compared to the outside CT abdomen/pelvis from
09/17/2023. Of note, peribronchial thickening was present at these locations on the chest CT from 10/07/2019 but the accompanying parenchymal opacities were less confluent at that time. Findings suggestive of an infectious/inflammatory process,
potentially acute on chronic and clinical correlation is recommended.
10/07/19 Bronchial wall thickening, bronchiectasis and small airway disease involving the right middle lobe, the posterior and medial segments of the right lower lobe, and the left lower lobe. There is also curvilinear atelectasis in the posterior and
inferior aspect of the left lower lobe. Slightly more confluent parenchymal opacity in the inferior aspect of the right middle lobe, which could represent atelectasis, or a more focal area of infection/inflammation. No significant pleural effusion.
Reports and relevant images were personally reviewed.
Subjective Data
-
Date of Service:
Date of Service: October 31, 2023
Chief Complaint: Pulmonary Follow Up
Subjective:
Patient seen and evaluated today at bedside. She feels well today, walking around the floor with no shortness of breath or chest pain. Cough is similar to yesterday. She denies chest pain, headache, abdominal pain, fevers or chills.
Review of Systems
General: Other (Negative unless mentioned above)
Objective Data
Data Reviewed
Vital Signs / I&O / Oxygen:
Vital Signs
Temp Pulse Resp BP Pulse Ox
98.8 F 65 14 118/53 96
10/31/23 07:20 10/31/23 08:12 10/31/23 08:12 10/31/23 07:20 10/31/23 08:12
Intake and Output
10/30/23 10/31/23 11/01/23
06:59 06:59 06:59
Intake Total 1999
Balance 1999
SaO2 96
Physical Exam
General: Respiratory Distress (negative), Comfortable and Other (NAD)
HEENT: Normocephalic, Anicteric and Moist Mucous Membranes
Cardiovascular: S1-S2 and Peripheral Edema (negative)
Respiratory: Wheeze (negative), Crackles (Bilateral in the bases to midlung back), Rhonchi (L>R) and Non-Labored Respirations
GI: Soft, Non Distended and Non Tender
Neurology: AO x 3 and Tremors (negative)
Skin: Warm, Dry and Jaundice (negative)
Labs/Micro/Reports
Lab Data
10/31/23 06:06
10/31/23 06:06
Microbiology
10/27/23 18:45 Blood/Venous Blood Culture - Preliminary
No Growth in 72 hours- Final report to follow
10/27/23 18:45 Blood/Venous Blood Culture - Preliminary
No Growth in 72 hours- Final report to follow
10/28/23 17:46 Nose MRSA Screen - Final
No Methicillin Resistant Staphylococcus aureus isolated.
10/28/23 09:41 Sputum Respiratory Culture - Final
Usual Respiratory Keturah
10/28/23 09:41 Sputum Gram Stain - Final
--- NOTE | 2023-10-31 10:53 | W.PN.HOSP.TC ---
Addendum entered and electronically signed by Suraj Johnson MD 10/31/23 12:20:
I personally performed a history and physical exam of the patient and discussed management with the resident. I reviewed the resident's note and agree with the documented findings and plan of care HPI/CC except for change in documentation.
CVS: S1-S2 normal
Chest: few scattered wheeses,
Abdomen: Soft, NT / Bowel sounds present
Extremities: No edema, normal pulses
[employer]: Non focal exam
# Community-acquired pneumonia
Sputum culture-usual respiratory estela
MRSA screen negative
No hypoxia
Blood cultures negative
Continue ceftriaxone , Can stop Zithromax after today. Will be day 5 (10/26 -10/30)
Change change to Ceftin 500 mg PO BID for 10 days .
Pulmonary following
Patient was clearly instructed to repeat imaging
She is going to stay home this week
# IBD-ulcerative colitis versus Crohn's disease with history of colon resection
This is complicated by multiple small bowel obstruction status post resection
May need to get started on biologic agents as outpatient at later time
# Recurrent anal abscess/fistula likely secondary to IBD
Currently following with colorectal at [facility]
# Mild hyponatremia-resolved
# Recent vaginal infection-completed fluconazole
# History of breast cancer status post bilateral mastectomies. No chemoradiation
# Asthma-on Symbicort, albuterol, Singulair as outpatient
# Anxiety/bipolar disease-continue Depakote, fluoxetine
# Migraines-continue Ubrelvy, rimegepant
# Hepatomegaly and hepatic steatosis on ultrasound
# GERD-continue PPI
# Chronic sinusitis with history of sinus surgeries in the past-continue Xyzal
# DVT prophylaxis-subcutaneous heparin
# Full code
Discussed with pulmonary. Okay for discharge
Total discharge coordination time over 30 minutes
Original Note:
Today's Communication/Plan
-
Discharge planning
Assessment / Plan
Assessment / Plan
53-year-old female with previous history of bronchiectasis, asthma, chronic cough, inflammatory bowel disease who presented with community acquired pneumonia, with cough and SOB, without hypoxia.
Community-acquired pneumonia:
-10/23 CT chest: Peribronchial thickening, airspace opacities, and some tree-in-bud nodules primarily within the inferior left lower lobe and medial right middle lobe. Findings appear increased compared to the outside CT abdomen/pelvis from
09/17/2023. Of note, peribronchial thickening was present at these locations on the chest CT from 10/07/2019 but the accompanying parenchymal opacities were less confluent at that time. Findings suggestive of an infectious/inflammatory process,
potentially acute on chronic and clinical correlation is recommended.
- No hypoxia
-Sputum culture showed usual respiratory estela
-Blood cultures x 2 NGTD
-Continue ceftriaxone, convert to oral Cefdinir up to 11/08
-Complete course of azithromycin today
-Pulmonary consult appreciated
-Will need outpatient pulmonology follow-up
-Repeat imaging in 6 weeks
Inflammatory bowel disease: Ulcerative colitis versus Crohn's disease;
-With multiple bowel obstruction, status post colon resection and two small bowel obstructions + resections. History of anal fistula.
-Being evaluated at [facility] + treatment
-Requires clearance of pneumonia before proceeding with further evaluation and treatment at [facility]
-No bowel symptoms at this time
Asthma
-Mild scattered wheezing on auscultation
-Continue nebulizer treatment
-Continue Symbicort and montelukast
Hyponatremia
-Resolved
Anxiety/bipolar
-Continue Depakote, fluoxetine
Migraine history, active issue
-Rimegepant as needed
-Ketorolac nasal spray as needed
Hx of Breast cancer
status post bilateral mastectomies
Anxiety/bipolar disease
- continue Depakote, fluoxetine
Migraines
- continue Ubrelvy, rimegepant
Hepatomegaly and hepatic steatosis on ultrasound
GERD
-Continue omeprazole
Chronic sinusitis status post sinus surgeries
-Continue Xyzal
Full code
DVT prophylaxis�heparin
Regular diet
Anticipated Discharge: Today
Subjective/Interval History
-
Date of Service: October 31, 2023
Patient reports improvement in ongoing symptoms. Vitals remained stable. No overnight events.
Objective Data
-
Labs:
Laboratory Results
10/31/23
06:06
WBC 6.7
Hgb 13.2
Hct 40.0
Plt Count 362
Sodium 137
Potassium 4.8
Chloride 101
Carbon Dioxide 25
BUN 16
Creatinine 0.9
Glucose 82
Calcium 9.7
Vital Signs:
Vital Signs
Temp Pulse Resp BP Pulse Ox
98.8 F 65 14 118/53 96
10/31/23 07:20 10/31/23 08:12 10/31/23 08:12 10/31/23 07:20 10/31/23 08:12
I&O
10/30/23 10/31/23 11/01/23
06:59 06:59 06:59
Intake Total 1999
Balance 1999
Review of Systems
-
History Source: Patient
Constitutional: Reports No Symptoms; Denies Fever
EENT: Reports Other (Hoarseness)
Respiratory: Reports Cough and Trouble Breathing; Denies Hemoptysis
Cardiac: Reports No Symptoms; Denies Chest Pain, Diaphoresis, Palpitations or Syncope
Abdomen/GI: Reports No Symptoms; Denies Abdominal Pain, Nausea, Vomiting, Diarrhea, Constipated or Bloody Stools
Genitourinary: Reports No Symptoms
Neuro: Denies Dizzy or Headache
Allergy / Immunology: Reports Asthma
Physical Exam
-
General: Well Developed, Well Nourished, No Apparent Distress and Comfortable; Negative Respiratory Distress
HEENT: Normocephalic, Atraumatic, Moist Mucous Membranes and Good Dentition; Negative Pharyngeal Erythema
Respiratory: Clear to Auscultation, Wheezes (mild expiratory, scattered) and Non Labored Respirations
Cardiac: Regular Rhythm and S1/S2; Negative Murmur, Rub, Calf Tenderness or Brianna's Sign
GI: Soft, Nontender, Nondistended and Normal Bowel Sounds
Musculoskeletal: No Clubbing, No Cyanosis and No Edema
Skin: Warm and Dry; Negative Rash, Ulcers, Lesions or Jaundice
Neuro: Awake, Alert and Oriented
Psych: Calm
--- NOTE | 2023-10-31 15:26 | W.DCSUMMARY ---
Discharge Summary
Discharge Data
Date of Admission: 10/27/23
Date of Discharge: 10/31/23
-
Pending Results: Yes
Additional Pending Results:
Immunoglobulin panel
Hospital Course
53-year-old female with previous history of bronchiectasis, asthma, chronic cough, inflammatory bowel disease, migraine, GERD, who presented with community acquired pneumonia, with cough and SOB, without hypoxia. She had cough productive of yellow
sputum, generalized aches for several weeks, with new shortness of breath. Chest CT showed evidence of pneumonia and patient was instructed by her printed circuit layout taper, Dr. Toledo with pulmonology, to present to the ED. Upon presentation, patient was
afebrile, with leukocytosis, and SpO2 95%. Other vitals were stable at presentation. Patient was started on azithromycin and ceftriaxone in the ED, which was continued throughout stay.
Most home medications were continued throughout stay. Patient observed improvement in symptoms, with improved cough and mild residual wheezing on exam at discharge.
Azithromycin 5-day course was completed and discontinued upon discharge. Ceftriaxone course continued throughout stay, converted to oral cefuroxime to be completed outpatient - total 14-day course, stop on 11/09/2023. Strong recommendation to
follow-up with printed circuit layout taper, Dr. Toledo outpatient on appointment date 11/30/2023, and PCP within 2 weeks.
Relevant data:
Sputum culture 10/28/2023: Usual respiratory estela
Blood cultures x 2 10/27/2023: No growth in [address] 10/24/2023 : peribronchial thickening, airspace opacities, and some tree-in-bud nodules primarily within the inferior left lower lobe and medial right middle lobe. Findings appear increased compared to the outside CT abdomen/pelvis from
09/17/2023. Of note, peribronchial thickening was present at these locations on the chest CT from 10/07/2019 but the accompanying parenchymal opacities were less confluent at that time. Findings suggestive of an infectious/inflammatory process,
potentially acute on chronic and clinical correlation is recommended.
Immunoglobulin panel 10/31/23: Pending results
Consults:
Pulmonology: Gloria Schwartz, DO
Discharge Plan
-
Patient Disposition: Home (Routine Discharge)
Discharge Diagnosis/Procedures: Community acquired pneumonia
Diet: No restrictions
Activity: No restrictions
Driving Restrictions: As prior to admission
Bathing Restrictions: None
Blood Work: IgG panel pending
Activity Restrictions/Additional Instructions:
Follow-up with primary physician or GI doctor for fatty liver.
Referrals:
Eber Toledo MD [Active] - 11/30/23 10:45 am
Venecia Long MD [Family Provider] - in less than 1 week
Additional Discharge Medication Instructions: Please follow-up with Dr. Toledo, pulmonology
Prescriptions:
New
cefuroxime axetil 500 mg tablet
500 mg PO BID Qty: 20 0RF
Rx Instructions:
Take at different time of day than omeprazole
Continued
albuterol sulfate 2.5 mg /3 mL (0.083 %) Solution For Nebulization
2.5 mg INHALATION R BID
divalproex 250 mg tablet,delayed release (DR/EC)
500 mg PO DAILY
divalproex 250 mg tablet,delayed release (DR/EC)
1,250 mg PO HS
ketotifen fumarate [Eye Itch Relief] 0.025 % (0.035 %) Drops
2 drp BOTH EYES DAILYPRN PRN (Reason: itchy eyes)
diphenoxylate-atropine [Lomotil] 2.5-0.025 mg Tablet
2 tab PO DAILY PRN (Reason: diarrhea)
fluoxetine 10 mg Capsule
10 mg PO HS
montelukast 10 mg Tablet
10 mg PO HS
ondansetron 4 mg Tablet,Disintegrating
4 mg PO Q6H PRN (Reason: nausea/vomiting)
levocetirizine [Xyzal] 5 mg Tablet
5 mg PO HS
omeprazole 20 mg Tablet,Delayed Release (Dr/Ec)
20 mg PO HS
cholecalciferol (vitamin D3) 125 mcg (5,000 unit) Tablet
125 mcg PO HS
Botox 200 unit Recon Soln
0 unit IM [id number]
Patient Comments:
10/27/2023, pt. unsure of dose.
ketorolac [Sprix] 15.75 mg/spray [place],Non-Aerosol
1 spray INTRANASAL DAILYPRN PRN (Reason: migraines)
Ubrelvy 100 mg Tablet
100 mg PO DAILYPRN PRN (Reason: migraines)
Nurtec ODT 75 mg Tablet,Disintegrating
75 mg PO DAILYPRN PRN (Reason: migraines)
Benadryl capsule
1 cap PO HSPRN PRN (Reason: allergies)
Fiber (psyllium husk) capsule
1 cap PO DAILYPRN PRN (Reason: constipation)
iron
1 tab PO DAILY
budesonide-formoterol [Symbicort] 160-4.5 mcg/actuation Hfa Aerosol Inhaler
2 puff INHALATION R BID
Discharge Orders:
Discharge Patient (As Directed); Ordered 10/31/23
Ordered By: Jessiac Gordon
Discharge Date and Time
Print Language: [id number]
[2023-10-31 15:35] VITALS: BP 120/63
--- NOTE | 2023-10-31 16:15 | CM ---
Patient has been medically cleared for discharge to home with no additional skilled services. Patient has arranged for transport home.
[2023-10-31] MEDS: ROCEPHIN 1000 MG IV (17:33)
[2023-10-31] MEDS: STERILE WATER FOR INJECTION 10 ML IV (17:33)
[2023-10-31] MEDS: ZITHROMAX 500 MG PO (17:33)
[2023-11-01 15:38] LABS: IgG Subclass 1 631 mg/dL (240-1118); IgG Subclass 2 541 mg/dL (124-549); IgG Subclass 3 87 mg/dL (21-134); IgG Subclass 4 37 mg/dL (1-123)
[2023-11-02 01:10] LABS: IgA 279 mg/dl (70-400); IgG 1478 mg/dl (700-1600); IgM 124 mg/dl (40-230)
== END 2023-10-31 17:50 | disposition home or self-care (01) | DRG 191 ==
LOC: 2 NORTH 20:35
PROVIDERS: Internal Medicine; Internal Medicine Critical Care Medicine; Nurse Practitioner; Student in an Organized Health Care Education/Training Program; ADMITTING PHYSICIAN Hospitalist; ATTENDING PHYSICIAN Hospitalist; CONSULT PHYSICIAN Internal Medicine; EMERGENCY PHYSICIAN Emergency Medicine; FAMILY PHYSICIAN Family Medicine
DX: J47.0 Bronchiectasis with acute lower respiratory infection (principal); E87.1 Hypo-osmolality and hyponatremia; K51.913 Ulcerative colitis, unspecified with fistula; K51.914 Ulcerative colitis, unspecified with abscess; J18.9 Pneumonia, unspecified organism; G43.909 Migraine, unspecified, not intractable, without status migrainosus; J45.20 Mild intermittent asthma, uncomplicated; F31.9 Bipolar disorder, unspecified; F41.9 Anxiety disorder, unspecified; K21.9 Gastro-esophageal reflux disease without esophagitis; J32.9 Chronic sinusitis, unspecified; Z85.3 Personal history of malignant neoplasm of breast; Z79.51 Long term (current) use of inhaled steroids; Z79.899 Other long term (current) drug therapy
CPT/HCPCS: 80048; 80053; 82784; 82787; 83605; 85025; 85027; 87040; 87070; 87205; 94640; 96365; 96375; 99284

== ENCOUNTER → 2023-12-11 16:26 | Outpatient (REF) | payer BC, SELFPAY | LOC: RAD 16:26 | PROVIDERS: ATTENDING PHYSICIAN Internal Medicine Critical Care Medicine; FAMILY PHYSICIAN Family Medicine | DX: J47.9 Bronchiectasis, uncomplicated (principal) | CPT/HCPCS: 71046 ==

== ENCOUNTER → 2024-01-12 10:37 | Outpatient (REF) | payer BC, SELFPAY | LOC: HWRAD 10:37 | PROVIDERS: ATTENDING PHYSICIAN Internal Medicine Critical Care Medicine; FAMILY PHYSICIAN Family Medicine | DX: J47.9 Bronchiectasis, uncomplicated (principal) | CPT/HCPCS: 71250 ==

== ENCOUNTER → 2024-01-19 08:39 | Outpatient (REF) | payer BC, SELFPAY | LOC: PAVMRI 08:39 | PROVIDERS: ATTENDING PHYSICIAN Orthopaedic Surgery Orthopaedic Surgery of the Spine; FAMILY PHYSICIAN Family Medicine | DX: M47.12 Other spondylosis with myelopathy, cervical region (principal) | CPT/HCPCS: 72141 ==

== ENCOUNTER → 2024-02-02 09:28 | Outpatient (REF) | payer BC, SELFPAY | LOC: MRI 3T 09:28 | PROVIDERS: ATTENDING PHYSICIAN Internal Medicine Gastroenterology; FAMILY PHYSICIAN Family Medicine | DX: K61.2 Anorectal abscess (principal) | CPT/HCPCS: 72197; 74183; A9575 ==

== ENCOUNTER → 2024-02-22 06:22 | Day surgery (SDC) | payer BC, SELFPAY ==
[2024-02-26 14:11] VITALS: BMI 25.2
== END ==
LOC: GI 06:22
PROVIDERS: ATTENDING PHYSICIAN Internal Medicine Gastroenterology
DX: K51.90 Ulcerative colitis, unspecified, without complications (principal); K91.850 Pouchitis; K62.4 Stenosis of anus and rectum; Z98.0 Intestinal bypass and anastomosis status
CPT/HCPCS: 45331; 88305

== ENCOUNTER → 2024-07-18 14:00 | Outpatient (REF) | payer BC, SELFPAY | LOC: CLAB 14:00 | PROVIDERS: ATTENDING PHYSICIAN Otolaryngology | DX: J32.0 Chronic maxillary sinusitis (principal) | CPT/HCPCS: 87070; 87205 ==

== ENCOUNTER → 2024-07-23 15:04 | Outpatient (REF) | payer BC, SELFPAY | LOC: REG 15:04 | PROVIDERS: ATTENDING PHYSICIAN Internal Medicine Gastroenterology; FAMILY PHYSICIAN Family Medicine | DX: R19.7 Diarrhea, unspecified (principal) | CPT/HCPCS: 87045; 87046; 87324; 87328; 87329; 87427; 87449; 89055 ==

== ENCOUNTER → 2024-09-19 09:43 | Outpatient (REF) | payer BC, SELFPAY ==
[2024-09-19 10:25] LABS: % Eosinophils 1.5 % (0-6); % Immature Granulocytes 0.3 % (0-0.5); % Lymphocytes 40.1 % (20.5-51.1); % Monocytes 9.8 % (1.7-9.3); % Neutrophils 47.3 % (42.2-75.2); Absolute Basophils 0.1 10^3/uL (0-0.2); Absolute Eosinophils 0.1 10^3/uL (0-0.7); Absolute Lymphocytes 2.4 10^3/uL (1.2-3.4); Absolute Monocytes 0.6 10^3/uL (0.1-0.6); Absolute Neutrophils 2.8 10^3/uL (1.4-6.5); Hematocrit 40.4 % (37.0-47.0); Hemoglobin 13.5 g/dL (12.0-16.0); Mean Corp Hgb Conc. 33.4 g/dL (33.0-37.0); Mean Corpuscular Volume 86.9 fL (81.0-99.0); Mean Platelet Volume 9.9 fL (7.4-10.4); Nucleated Red Blood Cells % 0 %; Platelet Count 294 10^3/uL (130-400); Red Blood Cell Count 4.65 10^6/uL (4.20-5.40); Red Cell Dist. Width 13.2 % (11.5-14.5); White Blood Cell Count 5.9 10^3/uL (4.8-10.8)
[2024-09-19 10:47] LABS: Depakane 62.7 ug/ml (50.0-120.0)
[2024-09-19 10:58] LABS: ALT (SGPT) 15 U/L (0-35); AST (SGOT) 15 U/L (14-36); Albumin 4.4 g/dl (3.5-5.0); Alkaline Phosphatase 42 U/L (38-126); Blood Urea Nitrogen 17 mg/dl (7-17); Calcium 9.9 mg/dl (8.4-10.2); Carbon Dioxide 28 mmol/L (22-30); Chloride 105 mmol/L (98-107); Glucose 99 mg/dl (70-99); HDL Cholesterol 36 mg/dl; Iron 106 ug/dl (37-170); LDL Cholesterol, Calculated 129 mg/dl; Potassium 4.8 mmol/L (3.5-5.1); Sodium 139 mmol/L (135-145); Total Bilirubin 0.7 mg/dl (0.2-1.3); Total Cholesterol 229 mg/dl (50-199); Total Protein 7.7 g/dl (6.3-8.2); Triglyceride 320 mg/dl (10-149); Very Low Density Lipoprotein 64 mg/dl (0-30); eGFR > 60.00
[2024-09-19 11:16] LABS: TSH Reflex To Free T4 2.22 uIU/ml (0.47-4.68)
[2024-09-19 11:20] LABS: Ferritin 63.7 ng/ml (11.1-264.0)
[2024-09-19 11:35] LABS: Vitamin B12 766 pg/ml (239-931)
== END ==
LOC: REG 09:43
PROVIDERS: ATTENDING PHYSICIAN Psychiatry & Neurology Psychiatry; FAMILY PHYSICIAN Family Medicine; OTHER PHYSICIAN Internal Medicine Critical Care Medicine
DX: F31.9 Bipolar disorder, unspecified (principal); Z79.899 Other long term (current) drug therapy; Z51.81 Encounter for therapeutic drug level monitoring; E78.2 Mixed hyperlipidemia; E61.1 Iron deficiency; E78.81 Lipoid dermatoarthritis; R94.6 Abnormal results of thyroid function studies; J47.9 Bronchiectasis, uncomplicated
CPT/HCPCS: 36415; 71046; 80053; 80061; 80164; 82607; 82728; 83540; 84443; 85025